=== PATIENT | male | born 2000 | race Caucasian/White ===

== ENCOUNTER 2022-10-24 13:14 | Emergency (ER) | payer OTHER ==
[~2022-10-24] VITALS: Ht 177.8 cm; Wt 67.0 kg
[2022-10-24 15:02] VITALS: BP 117/73
== END 2022-10-24 15:00 | disposition home or self-care (01) ==
LOC: ED 13:14
DX: S60.411A Abrasion of left index finger, initial encounter (principal); Z28.310 Unvaccinated for COVID-19; X58.XXXA Exposure to other specified factors, initial encounter; Y92.59 Other trade areas as the place of occurrence of the external cause; Y99.0 Civilian activity done for income or pay